=== PATIENT | female | born 1960 | race Caucasian/White ===

== ENCOUNTER 2024-04-05 11:12 | Emergency (ER) | payer BC, SELFPAY ==
[2024-04-05 11:20] VITALS: BP 177/95
[2024-04-05] MEDS: ZOFRAN ODT (ORALLY DISINTEGRATING) 4 MG PO (12:54)
[2024-04-05] MEDS: ADACEL 0.5 ML IM (12:55)
--- NOTE | 2024-04-05 13:24 | ED.MUSCINJ ---
HPI-Injury
General
Chief Complaint: Fall
Source: patient and family
Exam Limitations: none
Time Seen by Provider: 04/05/24 12:02
Nursing documentation reviewed up to this point in time: agreed with
Travel History
Have you had any contact with someone who has COVID-19?: No
Do you have any symptoms of coronavirus? Fever > 100 degrees, chills, cough, shortness of breath, sore throat, loss of taste or smell, muscle aches, or headache?: No
History of Present Illness-Injury
Is this injury a work related problem?: No
Is pt an associate of [facility]?: No
Initial Injury comments:
Patient is a 63-year-old female with past medical history of hypertension, hypothyroidism, who presents to the emergency department accompanied by her daughter and her significant other for evaluation following a fall that occurred around 1030 this
morning. Patient reports that she was leaving the [facility] [employer] here in [place] when she accidentally lost her footing coming down some concrete steps. Patient reports that she did strike her left forehead and has an abrasion there. She notes
abrasions to her bilateral forearms as well. Patient also notes pain and swelling to her right pinky finger and is concerned that it may be dislocated. Patient notes that she is right-hand dominant. Patient does endorse that the headache.
Patient denies dizziness, vision changes. She does note nausea but denies vomiting. Patient denies any numbness, weakness, tingling of any of her extremities. Patient denies any neck or back pain. Patient denies she is anticoagulated. Patient
denies taking any medication for pain prior to arrival. Patient denies that her tetanus is up-to-date.
Past History
Past History
ED Past Medical History: HTN and Hypothyroidism
ED Past Surgical History: Cholecystectomy and Other (Gastric bypass)
Social History
Tobacco: Non-smoker
Alcohol: Daily
Drug: None
Personal:
Review of Systems
Review of Systems
Allergies reviewed?: Yes
All Other Systems: ROS reviewed and negative except as documented in HPI and ROS
Constitutional: Reports no symptoms
EENT: Reports no symptoms
Respiratory: Reports no symptoms
Cardiac: Reports no symptoms
ABD/GI: Reports nausea; Denies abdominal pain or vomiting
: Reports no symptoms
Musculoskeletal: Reports other (right pinky finger pain)
Skin: Reports other (Abrasions)
Neurological: Reports headache; Denies dizzy
Endocrine: Reports no symptoms
Hematologic/Lymphatic: Reports no symptoms
Psychiatric: Reports no symptoms
Phy Exam
General Physical Exam
General Presentation: well appearing and no apparent distress
General Skin: warm and dry
General Habitus: normal
General Mental: alert
General Hydration: appears well hydrated
ENT Exam
ENT Exam: EOMI, pharynx normal, neck supple and normocephalic
Eye Exam
Eye Exam: PERRL, cornea clear and conjunctiva normal
Cardiovascular Exam
Cardiovascular Exam: regular rate/rhythm, no edema, no murmur and normal peripheral pulses
Pulmonary Exam
Pulmonary Exam: lungs clear, no respiratory distress, no rales, no crackles, no rhonchi, no stridor, no wheezing and no cough
Gastrointestinal Exam
Gastrointestinal Exam: normal bowel sounds, non tender, soft, no organomegaly, no pulsatile mass and non distended
Neurological Exam
Neurological Exam: alert, oriented x3, no motor deficits and speech normal
Musculoskeletal Exam
Musculoskeletal Exam: other (swelling to the right pinky finger with decreased ROM, cap refill <2 sec, sensation intact to light touch distally)
Skin Exam
Skin Exam: normal color, warm/dry, no rash, no petechia and other (abrasions and ecchymosis to the bilateral forearms)
Psychiatric Exam
Psychiatric Exam: normal mood/affect
Injury Course
Orders/Labs/Results
Orders:
Orders
04/05/24 11:[address] [CT Head W/o Iv Contrast] Urgent
Comment:
Reason For Exam: head injury, head pain
Finger(s)/Thumb 2 View Rt [CR Finger(s)/thumb Min 2 Vw Rt] Urgent
Comment:
Reason For Exam: fall, pain
04/05/24 12:48
Lidocaine 1% [Xylocaine 1%] 5 ml INFIL ONCE ONE
Ondansetron Orally Disint [Zofran Odt (Orally Disintegrating)] 4 mg PO NOW STA
Tetanus/Diphth/Acelpertussis [Adacel] 0.5 ml IM .ONCE ONE
04/05/24 13:23
Acetaminophen [Tylenol] 650 mg PO NOW STA
04/05/24 13:36
Finger(s)/Thumb 2 View Rt [CR Finger(s)/thumb Min 2 Vw Rt] Urgent
Comment:
Reason For Exam: right 5th digit dislocation, post reduction
Procedures
Joint/Fracture Reduction
Right Proximal Fifth Finger(s):
Indication for procedure:: dislocation
Procedure completed by: self
Consent form signed: No
If no, reason: Emergency procedure
Joint reduced: with anesthesia sedation
Anesthesia/sedation: Regional block
Injury was: closed
Further treatement: no treatment needed
Post reduction exam: stable
Capillary Refill: normal
Normal distal neurovascular exam?: Yes
Digital Block
Location of injection for digital block: base of digit
Indiction for Digital Block: orthopedic procedure
Was sensory exam normal prior to exam?: intack pin prick
Type of anesthesia: 1% Lidocaine w/o EPI
Complications: none- good anesthesia
*Critical Care Note
Total Time (30-74mins, 75-104mins- exclusive of procedures): Not Applicable
Update Note
Update Note:
63-year-old female not anticoagulated presents to the emergency department for evaluation following a mechanical fall this morning. Patient endorses head injury but denies loss of consciousness. Patient also notes pain over her right fifth digit.
Patient does have some scattered abrasions to the bilateral forearms as well. On arrival, patient is hypertensive, afebrile. On exam, patient is well-appearing, she is in no acute distress, she is neurologically intact. Radiographs of the right
fifth digit demonstrate evidence of dislocation. Digital block was performed and the joint was reduced. Postreduction films demonstrate normal alignment. Aluminum splint was placed and the patient will follow-up as an outpatient with orthopedics.
In regards to the patient's head injury, CT demonstrates no acute intracranial abnormality. Patient may have a concussion, she and her family were educated on cognitive rest and need for outpatient PCP interpreted her symptoms. In addition, the
patient's wounds were cleaned and dressed and the patient's tetanus was updated. Patient is safe for discharge to home with return precautions. Patient and her family expressed understanding of the plan and agreed.
ED Attending Note
-
Portions of this chart may have been created with voice recognition software.� Occasional wrong word or��sound alike� substitutions may have occurred due to the inherent limitations of voice recognition software.
Discharge Plan
Departure
Patient Disposition: Home (Routine Discharge)
Date of Disposition: 04/05/24
Time of Disposition: 14:13
Patient with high blood pressure during this ER visit?: Yes
Condition: Good
Covid-19: Not Applicable
Discharge Problem:
Fall, Dislocated finger, Closed head injury, Abrasion of forehead, Contusion of forearm
Instructions: Concussion, Adult (DC), Head Injury in Adults (DC), Contusion (DC), Finger Dislocation (DC)
Referrals:
Gaudencio Galindo MD [Active] - Follow up in 2-3 days
Leah May DO [Family Provider] - Follow up in 2-3 days
Stand Alone Forms: Return to Work
Activity Restrictions/Additional Instructions:
You were seen in the emergency department for evaluation following a fall. You had a CT scan of your head which shows no dangerous abnormalities. You may have a concussion, the treatment for this is both physical and cognitive rest. In regards to
your finger, it was dislocated. Therefore this was put back into place. You should wear the splint and follow-up with orthopedics this week. You may take Tylenol 650 mg every 4-6 hours as needed for pain, not to exceed 3000 mg in any 24-hour
period. You may use ice to the area for 20 minutes at a time 4-5 times a day. You sustained abrasions to your forehead and arms. Your tetanus was updated today. Please keep the abrasions clean by washing gently with soap and water, pat dry,
apply thin layer of antibiotic ointment. Please return to the emergency department for worsening or severe headache, confusion, persistent vomiting, numbness, weakness, tingling of one or more of your extremities, or for any other worsening or
concerning symptoms.
Interventions
Interventions:
*Risk Screen - Suicide Last Done: 04/05/24 11:20
*General Assessment Last Done: 04/05/24 11:20
*Neglect/Abuse Screening Last Done: 04/05/24 11:20
*ED COVID-19 Vaccine History Last Done: 04/05/24 12:19
ED-Musculoskeletal Assessment Last Done: 04/05/24 12:19
ED- Neurological Assessment Last Done: 04/05/24 12:19
ED-Skin Assessment Last Done: 04/05/24 12:19
Discharge Date and Time
Print Language: FILIPINO
[2024-04-05] MEDS: TYLENOL 650 MG PO (13:30)
== END 2024-04-05 14:38 | disposition home or self-care (01) ==
LOC: EMR 11:12
PROVIDERS: EMERGENCY PHYSICIAN Emergency Medicine; FAMILY PHYSICIAN Family Medicine
DX: S09.90XA Unspecified injury of head, initial encounter (principal); S00.81XA Abrasion of other part of head, initial encounter; S50.811A Abrasion of right forearm, initial encounter; S50.812A Abrasion of left forearm, initial encounter; S63.276A Dislocation of unspecified interphalangeal joint of right little finger, initial encounter; W19.XXXA Unspecified fall, initial encounter; Z23 Encounter for immunization; I10 Essential (primary) hypertension
CPT/HCPCS: 99284; 64450; 26770; 90471; 70450; 73140; 90715